=== PATIENT | female | born 1940 | race Caucasian/White ===

== ENCOUNTER → 2018-04-11 | Outpatient (CLI) | payer MEDICARE ==
[~2018-04-11] MED LIST: ANAS1TAB PO; ASPI-496 PO; ASPI-621 PO; CALC500T93 PO; CETI10TA24 PO; CHOL5000 PO; DENO60DI IM; DENO60DI INJ; DIPH25CA61 PO; DOCU-180 PO; FLUO20TA25 PO; HYDR-3237 PO; LEVO100T5 PO; MULT1TAB60 PO; QUET25TA PO; TIZA2TAB PO; TIZA4TAB PO; VIT1CAPS44 PO; ZOLP6.253 PO; [UNRECOGNIZED DRUG - OTHER] PO
[2018-04-11 09:11] LABS: BASOPHILS # (AUTO) 0.03 x10^3/uL (0-0.1); BASOPHILS % (AUTO) 0 % (0-1); EOSINOPHILS # (AUTO) 0.17 x10^3/uL (0-0.4); EOSINOPHILS % (AUTO) 2 % (1-7); LYMPHOCYTES # (AUTO) 1.66 x10^3/uL (1-3.4); LYMPHOCYTES % (AUTO) 22 % (22-44); MD NO; MEAN CORPUSCULAR HEMOGLOBIN 29.8 pg (27.0-34.8); MEAN CORPUSCULAR HGB CONC 32.7 g/dL (32.4-35.8); MEAN CORPUSCULAR VOLUME 91.2 fL (80-100); MEAN PLATELET VOLUME 10.2 fL (7.4-10.4); MONOCYTES # (AUTO) 0.88 x10^3/uL (0.2-0.8); MONOCYTES % (AUTO) 11 % (2-9); NEUTROPHILS # (AUTO) 4.99 x10^3/uL (1.8-6.8); NEUTROPHILS % (AUTO) 65 % (42-75); PLATELET COUNT 160 x10^3/uL (130-400); RED BLOOD COUNT 4.89 x10^6/uL (3.82-5.3); RED CELL DISTRIBUTION WIDTH 14.2 % (9.6-15.2)
[2018-04-11 09:22] LABS: ANION GAP 7 mmol/L (5-15); CALCIUM 8.4 mg/dL (8.5-10.1); CHLORIDE 105 mmol/L (98-107); CREATININE 0.76 mg/dL (0.55-1.02)
[2018-04-11 09:47] LABS: MICROSCOPIC INDICATED
[2018-04-11 09:48] LABS: CULTURE INDICATED? YES
== END | disposition home or self-care (01) ==
LOC: STAR 08:07
PROVIDERS: ATTEND Orthopaedic Surgery
DX: Z01.818 Encounter for other preprocedural examination (principal); M17.11 Unilateral primary osteoarthritis, right knee; M25.561 Pain in right knee
CPT/HCPCS: 36415; 80048; 81001; 85025; 87081; 87086; 87147; 93005

== ENCOUNTER 2018-04-22 09:10 | Inpatient (IN) | payer MEDICARE ==
[~2018-04-22] VITALS: Ht 175.3 cm; Wt 78.5 kg
[~2018-04-22 09:10] MED LIST changes: +EPINEPHRINE 1 MG/ML, 1ML ONE; +KETOROLAC 60 MG/2 ML ONE; +ROPIvacaine/PF 0.2%, 20 ML ONE; +SODIUM CHLORIDE 0.9% 100 ML ONE; +TRANEXAMIC ACID 100 MG/ML, 10ML ONE; +VANCOMYCIN 1,000 MG ONE
[2018-04-22] MEDS ORDERED: MIDAZOLAM 1 MG/ML, 2ML ONE (09:53)
[2018-04-22] MEDS ORDERED: FENTANYL PF 100 MCG/2ML ONE ×2 (09:53→12:49)
[2018-04-22] MEDS ORDERED: PROPOFOL 50 ML ONE (10:01)
[2018-04-22] MEDS ORDERED: LACTATED RINGERS 1,000 ML IV SCH (10:14)
[2018-04-22] MEDS ORDERED: GABAPENTIN 300 MG CAPSULE PO ONE (10:30)
[2018-04-22] MEDS ORDERED: ONDANSETRON ODT 8 MG PO ONE (10:30)
[2018-04-22] MEDS ORDERED: ACETAMINOPHEN 500 MG TABLET PO ONE (10:30)
[2018-04-22] MEDS ORDERED: FAMOTIDINE 20 MG TABLET PO ONE (10:30)
[2018-04-22 10:50] VITALS: BP 138/84
[2018-04-22] MEDS ORDERED: DEXAMETHASONE 4 MG/ML, 1ML ONE (11:28)
[2018-04-22] MEDS ORDERED: ZOLPIDEM 5MG TABLET PO PRN (11:30)
[2018-04-22] MEDS ORDERED: PROMETHAZINE 25 MG/ML, 1ML IM PRN (11:30)
[2018-04-22] MEDS ORDERED: MAGNESIUM HYDROXIDE 8%, 30ML UDC PO PRN (11:30)
[2018-04-22] MEDS ORDERED: ALUMINUM/MAG/SIMETHICONE 30 ML UDC PO PRN (11:30)
[2018-04-22] MEDS ORDERED: DIPHENHYDRAMINE 50 MG CAPSULE PO PRN (11:30)
[2018-04-22] MEDS ORDERED: HYDROmorphone 1 MG/ML, 1ML IV PRN (11:30)
[2018-04-22] MEDS ORDERED: PROMETHAZINE 12.5 MG SUPP PR PRN (11:30)
[2018-04-22] MEDS ORDERED: DIAZEPAM 5 MG TABLET PO PRN (11:30)
[2018-04-22] MEDS ORDERED: BISACODYL 10 MG SUPP PR PRN (11:30)
[2018-04-22] MEDS ORDERED: ONDANSETRON 2MG/ML, 2ML IV PRN ×2 (11:30→12:30)
[2018-04-22] MEDS ORDERED: SENNA/DOCUSATE TABLET PO PRN (11:30)
[2018-04-22] MEDS ORDERED: ONDANSETRON 4 MG TABLET PO PRN (11:30)
[2018-04-22] MEDS ORDERED: ACETAMINOPHEN 650 MG/20.3 ML UDC PO PRN (11:30)
[2018-04-22] MEDS ORDERED: FENTANYL PF 250 MCG/5ML ONE (11:49)
[2018-04-22] MEDS ORDERED: PROPOFOL 10 MG/ML, 20ML ONE (11:54)
[2018-04-22] MEDS ORDERED: PROCHLORPERAZINE 5 MG/ML, 2ML IV PRN (12:30)
[2018-04-22] MEDS ORDERED: MEPERIDINE/PF 25MG/0.5ML IVPush PRN (12:30)
[2018-04-22] MEDS ORDERED: LORazepam 2 MG/ML, 1ML IVPush PRN (12:30)
[2018-04-22] MEDS ORDERED: DIAZEPAM 5 MG/ML, 2ML IVPush PRN (12:30)
[2018-04-22] MEDS ORDERED: FENTANYL PF 100 MCG/2ML IV PRN (12:30)
[2018-04-22] MEDS ORDERED: ONDANSETRON ODT 8 MG PO PRN (12:30)
[2018-04-22] MEDS ORDERED: HYDROcodone/APAP 7.5-325MG/15ML UDC PO PRN (12:30)
[2018-04-22] MEDS ORDERED: TRANEXAMIC ACID 1,000 MG in SODIUM CHLORIDE 0.9% 100 ML IVPB ONE (13:00)
[2018-04-22] MEDS ORDERED: HYDROmorphone 2 MG/ML, 1ML ONE (13:46)
[2018-04-22] MEDS ORDERED: HYDROcodone/APAP 7.5-325MG/15ML UDC ONE (13:46)
[2018-04-22] MEDS: HYDROmorphone 1 MG/ML, 1ML IV PRN ×2 (13:50→14:24)
[2018-04-22] MEDS: D5%-0.45% NACL 1,000 ML IV SCH ×2 (16:42→20:23)
[2018-04-22] MEDS: ASPIRIN 81 MG TABLET EC PO SCH (17:48)
[2018-04-22] MEDS: HYDROcodone/APAP 10/325 MG TABLET PO PRN ×2 (17:48→22:25)
[2018-04-22] MEDS ORDERED: CEFAZOLIN PMX 2GM/50ML 50 ML IVPB SCH (19:00)
[2018-04-22] MEDS ORDERED: CEFAZOLIN 2,000 MG in DEXTROSE 5% 50 ML IVPB SCH (19:00)
[2018-04-22] MEDS ORDERED: CEFAZOLIN PMX 1GM/50ML 0 ML ONE (20:18)
[2018-04-22 20:20] VITALS: BP 108/63
[2018-04-22] MEDS: DOCUSATE 100 MG CAPSULE PO SCH (20:22)
[2018-04-22] MEDS: FLUOXETINE HCL 20 MG CAPSULE PO SCH (20:23)
[2018-04-22] MEDS: CEFAZOLIN 2,000 MG in DEXTROSE 5% 50 ML IVPB SCH (21:09)
[2018-04-23] VITALS: BP 114/69
[2018-04-23 03:48] VITALS: BP 107/64
[2018-04-23] MEDS: ASPIRIN 81 MG TABLET EC PO SCH (05:10)
[2018-04-23] MEDS: CEFAZOLIN 2,000 MG in DEXTROSE 5% 50 ML IVPB SCH (05:10)
[2018-04-23] MEDS: HYDROcodone/APAP 10/325 MG TABLET PO PRN ×2 (05:10→10:13)
[2018-04-23] MEDS ORDERED: LEVOTHYROXINE 100 MCG TABLET PO SCH (06:00)
[2018-04-23] MEDS ORDERED: DEXAMETHASONE 4 MG/ML, 1ML IVPush SCH (06:00)
[2018-04-23 08:06] VITALS: BP 122/78
[2018-04-23] MEDS ORDERED: ANASTROZOLE 1 MG TABLET PO SCH (09:00)
[2018-04-23] MEDS ORDERED: MULTIVITAMINS/MINERALS TABLET PO SCH (09:00)
[2018-04-23] MEDS: FLUOXETINE HCL 20 MG CAPSULE PO SCH (10:12)
[2018-04-23] MEDS: DOCUSATE 100 MG CAPSULE PO SCH (10:13)
[2018-04-23] MEDS ORDERED: ZOLP6.252 PO (11:14)
[2018-04-23] MEDS ORDERED: ASPI-515 PO (11:19)
[2018-04-23] MEDS ORDERED: KETOROLAC 30 MG/1 ML IV SCH (11:30)
== END 2018-04-23 11:30 | disposition home or self-care (01) | DRG 470 ==
LOC: OUT 09:10 → 4NOR 11:17 → OUT 11:17 → 4NOR 14:40 → DCLOUNGE 04-23 11:03
PROVIDERS: ADMIT Orthopaedic Surgery; ATTEND Orthopaedic Surgery
PROC: 3E0T3BZ Introduction of Anesthetic Agent into Peripheral Nerves and Plexi, Percutaneous Approach (ICD-10-PCS; 2018-04-22)
PROC: 0SRC0J9 Replacement of Right Knee Joint with Synthetic Substitute, Cemented, Open Approach (ICD-10-PCS; principal; 2018-04-22 11:30)
DX: M17.11 Unilateral primary osteoarthritis, right knee (principal); F32.9 Major depressive disorder, single episode, unspecified; M81.0 Age-related osteoporosis without current pathological fracture; F41.9 Anxiety disorder, unspecified; E03.9 Hypothyroidism, unspecified; Z85.3 Personal history of malignant neoplasm of breast; Z88.6 Allergy status to analgesic agent; Z79.899 Other long term (current) drug therapy; Z88.8 Allergy status to other drugs, medicaments and biological substances
CPT/HCPCS: 36415; 85014; 85018; C1713; G0378; J0171; J0690; J1100; J1170; J1885; J2250; J2704; J2795; J3010; J3370; Q0162; C1776; J7120

== ENCOUNTER 2018-12-23 12:40 | Outpatient (CLI) | payer MEDICARE | END 2018-12-23 23:59 | disposition home or self-care (01) | LOC: CFH 12:40 | PROVIDERS: ATTEND Internal Medicine Hematology & Oncology | DX: Z51.89 Encounter for other specified aftercare (principal); C50.519 Malignant neoplasm of lower-outer quadrant of unspecified female breast; L03.90 Cellulitis, unspecified; I97.2 Postmastectomy lymphedema syndrome; M85.9 Disorder of bone density and structure, unspecified; Z79.811 Long term (current) use of aromatase inhibitors | CPT/HCPCS: 36415; 80048; 85025 ==

== ENCOUNTER 2019-06-17 07:30 | Outpatient (CLI) | payer MEDICARE ==
[~2019-06-17 07:30] MED LIST changes: +ASPI-515 PO; -ASPI-621 PO; +ASPI81TA45 PO; -EPINEPHRINE 1 MG/ML, 1ML ONE; -KETOROLAC 60 MG/2 ML ONE; -QUET25TA PO; +QUET25TA7 PO; -ROPIvacaine/PF 0.2%, 20 ML ONE; -SODIUM CHLORIDE 0.9% 100 ML ONE; -TIZA2TAB PO; +TIZA2TAB2 PO; -TIZA4TAB PO; +TIZA4TAB2 PO; -TRANEXAMIC ACID 100 MG/ML, 10ML ONE; -VANCOMYCIN 1,000 MG ONE; +ZOLP6.252 PO
[2019-06-17 12:19] LABS: BASOPHILS # (AUTO) 0.02 x10^3/uL (0-0.1); BASOPHILS % (AUTO) 0 % (0-1); EOSINOPHILS # (AUTO) 0.12 x10^3/uL (0-0.4); EOSINOPHILS % (AUTO) 2 % (1-7); LYMPHOCYTES # (AUTO) 1.53 x10^3/uL (1-3.4); LYMPHOCYTES % (AUTO) 25 % (22-44); MD NO; MEAN CORPUSCULAR HEMOGLOBIN 31.1 pg (27.0-34.8); MEAN CORPUSCULAR HGB CONC 34.3 g/dL (32.4-35.8); MEAN CORPUSCULAR VOLUME 90.7 fL (80-100); MONOCYTES # (AUTO) 0.53 x10^3/uL (0.2-0.8); MONOCYTES % (AUTO) 9 % (2-9); NEUTROPHILS # (AUTO) 3.87 x10^3/uL (1.8-6.8); NEUTROPHILS % (AUTO) 64 % (42-75); PLATELET COUNT 148 x10^3/uL (130-400); RED BLOOD COUNT 4.67 x10^6/uL (3.82-5.3); RED CELL DISTRIBUTION WIDTH 14.8 % (9.6-15.2)
[2019-06-17 12:20] LABS: HCT (SEDRATE) 42.9 % (34.6-47.8)
[2019-06-17 12:57] LABS: ALANINE AMINOTRANSFERASE 20 U/L (12-78); ALBUMIN 3.3 g/dL (3.4-5.0); ANION GAP 7 mmol/L (5-15); C-REACTIVE PROTEIN, QUANT 0.31 mg/dL (0.02-0.49); CALCIUM 8.7 mg/dL (8.5-10.1); CHLORIDE 110 mmol/L (98-107); CREATININE 0.87 mg/dL (0.55-1.02)
[2019-06-17 13:08] LABS: ALKALINE PHOSPHATASE 53 U/L (45-117); BILIRUBIN,TOTAL 0.7 mg/dL (0.2-1.0); TOTAL PROTEIN 6.8 g/dL (6.4-8.2)
[2019-06-19 15:03] LABS: ANA SCREEN NEGATIVE (Negative)
== END 2019-06-17 23:59 | disposition home or self-care (01) ==
LOC: CFH 07:30
PROVIDERS: ATTEND Internal Medicine Hematology & Oncology
DX: Z51.89 Encounter for other specified aftercare (principal); C50.519 Malignant neoplasm of lower-outer quadrant of unspecified female breast; L03.90 Cellulitis, unspecified; I97.2 Postmastectomy lymphedema syndrome; M85.9 Disorder of bone density and structure, unspecified; Z79.811 Long term (current) use of aromatase inhibitors; Z79.899 Other long term (current) drug therapy
CPT/HCPCS: 36415; 80053; 81374; 82306; 83735; 84443; 84550; 85025; 85651; 86038; 86140; 86160; 86162; 86200; 86225; 86235; 86430

== ENCOUNTER → 2020-01-09 | Outpatient (CLI) | payer MEDICARE ==
[~2020-01-09] MED LIST changes: -CETI10TA24 PO; +CETI10TA26 PO; +MULT-449 PO; -MULT1TAB60 PO; -TIZA2TAB2 PO; +TIZA2TAB4 PO
[2020-01-09 12:35] LABS: CHLORIDE 109 mmol/L (98-107)
[2020-01-09 12:44] LABS: ALANINE AMINOTRANSFERASE 28 U/L (12-78); ALBUMIN 3.5 g/dL (3.4-5.0); ALKALINE PHOSPHATASE 58 U/L (45-117); ANION GAP 4 mmol/L (5-15); BILIRUBIN,TOTAL 0.5 mg/dL (0.2-1.0); CALCIUM 9.1 mg/dL (8.5-10.1); CREATININE 0.81 mg/dL (0.55-1.02)
== END | disposition home or self-care (01) ==
LOC: CFH 09:22
PROVIDERS: ATTEND Internal Medicine Hematology & Oncology
DX: Z51.89 Encounter for other specified aftercare (principal); C50.519 Malignant neoplasm of lower-outer quadrant of unspecified female breast; L03.90 Cellulitis, unspecified; I97.2 Postmastectomy lymphedema syndrome; M85.9 Disorder of bone density and structure, unspecified; Z79.811 Long term (current) use of aromatase inhibitors; Z79.899 Other long term (current) drug therapy
CPT/HCPCS: 36415; 80053; 83735; 84100

== ENCOUNTER 2020-10-21 11:53 | Outpatient (CLI) | payer MEDICARE ==
[~2020-10-21 11:53] MED LIST changes: -ASPI-515 PO; +ASPI-963 PO; -CETI10TA26 PO; +CETI10TA76 PO; -DOCU-180 PO; +DOCU-192 PO; +TIZA-106 PO; -TIZA2TAB4 PO; -ZOLP6.253 PO; +ZOLP6.255 PO
== END 2020-10-21 23:59 | disposition home or self-care (01) ==
LOC: CFH 11:53 → EDSTATUS 12:30 → CFH 23:59
PROVIDERS: ATTEND Internal Medicine
DX: J84.10 Pulmonary fibrosis, unspecified (principal); R91.8 Other nonspecific abnormal finding of lung field; M51.34 Other intervertebral disc degeneration, thoracic region; M43.8X4 Other specified deforming dorsopathies, thoracic region
CPT/HCPCS: 71250

== ENCOUNTER 2021-01-18 08:42 | Outpatient (CLI) | payer MEDICARE ==
[2021-01-18 09:04] LABS: BASOPHILS % (AUTO) 1 % (0-1); EOSINOPHILS % (AUTO) 2 % (1-7); LYMPHOCYTES % (AUTO) 21 % (22-44); MEAN CORPUSCULAR HEMOGLOBIN 30.3 pg (27.0-34.8); MEAN CORPUSCULAR HGB CONC 32.8 g/dL (32.4-35.8); MEAN PLATELET VOLUME 10.2 fL (7.4-10.4); MONOCYTES % (AUTO) 10 % (2-9); NEUTROPHILS % (AUTO) 66 % (42-75); PLATELET COUNT 152 x10^3/uL (130-400); RED BLOOD COUNT 4.63 x10^6/uL (3.82-5.3); RED CELL DISTRIBUTION WIDTH 14.3 % (9.6-15.2)
[2021-01-18 09:12] LABS: ANION GAP 5 mmol/L (5-15); CALCIUM 8.7 mg/dL (8.5-10.1); CHLORIDE 109 mmol/L (98-107); CREATININE 0.85 mg/dL (0.55-1.02); INTERNATIONAL NORMALIZED RATIO 0.96 (0.93-1.1); PROTHROMBIN TIME 10.3 Seconds (9.6-11.5)
== END 2021-01-18 23:59 | disposition home or self-care (01) ==
LOC: LAB 08:42
PROVIDERS: ATTEND Internal Medicine
DX: G47.31 Primary central sleep apnea (principal)
CPT/HCPCS: 36415; 80048; 85025; 85610